=== PATIENT | female | born 1980 | race Caucasian/White ===

== ENCOUNTER 2022-05-05 13:17 | Outpatient (CLI) ==
[2022-05-05 15:33] LABS: Appearance,Urine Cloudy (Clear); Bacteria,Urine Occasional /hpf; Bilirubin,Urine Negative (Negative); Blood,Urine Negative (Negative); Color,Urine Yellow; Glucose,Urine (UA) Negative (Negative); Ketones,Urine 3+ (Negative); Leukocyte Esterase,Urine Small (Negative); Mucus,Urine Few /hpf; Nitrite,Urine Positive (Negative); Protein,Urine Trace (Negative); RBC,Urine 2 /hpf (0-5); Specific Gravity,Urine 1.022 (1.001-1.035); Squamous Epithelial Cell,Urine <1 /hpf (0-4); Urobilinogen,Urine <2.0 mg/dL (<2.0); WBC,Urine 21 /hpf (0-5)
[2022-05-05 15:37] LABS: Amphetamine Screen,Urine Not Detected (NotDetected); Barbiturate Screen,Urine Not Detected (NotDetected); Benzodiazepines Screen,Urine Not Detected (NotDetected); Cocaine Screen,Urine Not Detected (NotDetected); Methadone Screen, Urine Not Detected (NotDetected); Opiate Screen,Urine Not Detected (NotDetected); Oxycodone Screen, Urine Not Detected (NotDetected); Phencyclidine Screen,Urine Not Detected (NotDetected); Tricyclic Antidepressant,Urine Not Detected (NotDetected); Urn Cannabinoid Scrn Detected (NotDetected)
--- NOTE | 2022-05-05 16:20 | US ---
EXAMINATION TYPE: US OB >= 14 wk fetus DATE OF EXAM: 05/05/2022 COMPARISON: None CLINICAL HISTORY: DOM limited PNC Limited PNC. Cramping. Hx 2 miscarriages. . Hx 1 C section. TECHNIQUE: Transabdominal (TA) GESTATIONAL AGE / DATING Physician Established: (29 weeks/4 days) EDC: 07/17/2022 Dates by LMP: Unknown Dates by First Scan: This is first scan at this facility. Dates by Current Scan: (29 weeks/3 days) EDC: 07/18/2022 SURVEY IUP: Single PLACENTA: Anterior. Appears very heterogeneous. PREVIA: No Previa RITIKA: 13.7 cm Normal CERVICAL LENGTH (transabdominal: norm > 3.0cm): Bladder was empty. *Not visualized. Transvaginal exam deferred per CAROLANN Starks. BIOMETRY PRESENTATION: Vertex BPD: 7.49 cm 30 weeks / 0 days HC: 27.40 cm 29 weeks / 6 days AC: 25.63 cm 29 weeks / 6 days FL: 5.61 cm 29 weeks / 4 days ESTIMATED WEIGHT IN GRAMS: 1445 grams ESTIMATED WEIGHT IN LBS/OZ: 3 lbs. 3 oz. WEIGHT PERCENTAGE BASED ON ESTABLISHED DATES: 42.5% HC/AC: 1.07 Normal FL/AC: 21.89 Normal HEART RATE: 136 bpm RHYTHM: Normal Single live intrauterine gestation. IMPRESSION: Single live intrauterine gestation with estimated gestational age of 29 weeks 3 days and estimated du e date of 07/18/2022.
[2022-05-05 16:35] LABS: Basophils % (A) 0 %; Eosinophils # (A) 0.1 k/uL (0-0.7); Eosinophils % (A) 1 %; HCT 33.8 % (34.0-46.0); HGB 11.3 gm/dL (11.4-16.0); Lymphocytes # (A) 1.6 k/uL (1.0-4.8); Lymphocytes % (A) 17 %; MCH 31.4 pg (25.0-35.0); MCHC 33.5 g/dL (31.0-37.0); MCV 93.7 fL (80.0-100.0); Mean Platelet Volume 7.7; Monocytes # (A) 0.4 k/uL (0-1.0); Monocytes % (A) 4 %; Neutrophils # (A) 7.1 k/uL (1.3-7.7); Neutrophils % (A) 76 %; Platelet Count 299 k/uL (150-450); RBC 3.61 m/uL (3.80-5.40); RDW 13.1 % (11.5-15.5); WBC 9.3 k/uL (3.8-10.6)
[2022-05-06 10:35] LABS: Hepatitis B Surface Antigen Nonreactive (Nonreactive)
[2022-05-06 14:02] LABS: HIV 2 AB Non-Reactive (Non-Reactive); HIV AB P24 Non-Reactive (Non-Reactive); HIV P24 AG Non-Reactive (Non-Reactive)
[2022-05-07 13:57] LABS: C. trachomatis,PCR Negative (Neg,Equiv); Chlamydia trachomatis Source Urine; N. gonorrhoeae,PCR Negative (Neg,Equiv); Neisseria Source Urine
--- NOTE | 2022-05-13 12:22 | P.MSEPDOC ---
Presenting Problems - Arrival Data Date of Arrival on Unit: 05/05/22 Time of Arrival on Unit: 13:19 Mode of Transport: Ambulatory - Complaint OB-Reason for Admission/Chief Complaint: Other Comment: 41 year old EDC 07/17/22 DOM. Arrived to unit c/o throwing up blood and cramping and possible UTI. Ptalso states she was concerned about her baby cause she hadnt seen her doctor in about 2 months. she states she had been getting PNC in [place] and came to this area with her . nurse asked pt if she planned on delivereing here pt states she didnt know asked when shes going back to [place]. pt states her makes all the calls Medical History - Information : 5 Para: 3 Term: 3 : 0 Abortions: Spontaneous or Elective: 1 Number of Living Children: 3 - Gestational Age Gestational Age by DARION (wks/days): 29 Weeks and 4 Days - History Complications: No Care Review of Systems - Review of Systems Constitutional: No problems Breast: No problems ENT: No problems Cardiovascular: No problems Respiratory: No problems Gastrointestinal: No problems Genitourinary: No problems Musculoskeletal: No problems Neurological: No problems Skin: No problems Vital Signs - Temperature Temperature: 98.2 F Temperature Source: Oral - Pulse Right Brachial Pulse Rate: 77 Pulse Assessment Method: Automatic Cuff - Respirations Respiratory Rate: 16 Oxygen Delivery Method: Room Air O2 Sat by Pulse Oximetry: 98 - Blood Pressure Right Arm Blood Pressure: 127/66 Blood Pressure Mean: 86 Blood Pressure Source: Automatic Cuff Medical Screen Scoring - Cervical Exam Membranes: Intact - Uterine Contractions Resting: Soft to palpation - Assessment - Baby A Baseline FHR: 130 Heart Rate - NICHD Category: Category I (Normal) NST: Reactive Physician Notification - Physician Notified Physician Notified Date: 05/05/22 Physician Notified Time: 13:38 Physician: Dr Yen New Order Received: Yes - Notification Comment Comment: PN Panel Labs, OB U/S, U/A and Drug Screen may discharge to home Maternal Triage Index - Non-Urgent/Priority 4 Non-Urgent Priority 4: Yes Criteria Met for Priority 4: 41 year old EDC 07/17 29 4/7 WEEKS C/O THROWING UP BLOOD WHEN ASKED MORE ABOUT HOW MUCH PT STATES ITS MUCUS WITH BLOOD SPECS. PT ALSO DOM HAS HAD LIMITED PNC IN [place]. PT ALSO HISTORY TO SUBOXAN USE AND THC AND VAPES. . PTS V/S STABLE ABD SODT AND NONTENDER REACTIVE NST. U/S COMPLETED AND PN LABS DRAWN. DR PARDO IN TO SEE PT Disposition - Disposition OB Disposition: Discharge to home Discharge Date: 05/05/22 Discharge Time: 18:03 I agree with the RN Medical Screening Exam: Yes Physician's MSE Comment: I personally saw and evaluated the patient. No ongoing vomiting of the blood, abdominal pain, nausea or vomiting. She denies vaginal bleeding or contractions. She is questions about plans for care and is offered to follow-up in our office. Ultrasound report was received and shows appropriate growth for stated gestational age with no obvious placental or fluid abnormalities at 29-4/7 weeks. The patient states that she will not be staying in the area and her is arranging follow-up.. I questioned the patient in private whether she is safe in her current living situation and with her and she states that she is safe. Case reviewed; plan agreed upon as documented in EMR&OBIX.: Yes Diagnosis: insufficient care
== END 2022-05-05 18:03 | disposition home or self-care (01) ==
LOC: FBPOP 13:17
PROVIDERS: ATTEND Obstetrics & Gynecology
DX: O09.33 Supervision of pregnancy with insufficient antenatal care, third trimester (principal); Z3A.29 29 weeks gestation of pregnancy
CPT/HCPCS: 59025; 76805; 80306; 81001; 82947; 85025; 86762; 86780; 86850; 86900; 86901; 87340; 87390; 87491; 87591; 99213